=== PATIENT | male | born 1990 | race Caucasian/White ===

== ENCOUNTER 2019-09-18 20:09 | Inpatient (IN) | payer SELFPAY ==
[~2019-09-18] VITALS: Ht 175.3 cm; Wt 77.1 kg
[2019-09-18] MEDS ORDERED: KETOROLAC 30MG/ML VIAL IV STA (21:53)
[2019-09-18] MEDS ORDERED: SODIUM CHLORIDE 0.9% 1,000 ML IV ONE (21:53)
[2019-09-18 22:18] LABS: CHLORIDE 96 mEq/L (98-107); HEMATOCRIT. 42.7 % (42.0-52.0); HEMOGLOBIN. 14.6 g/dL (14.0-18.0); MEAN CORPUSCULAR HEMOGLOBIN 31.7 pg (28.0-32.0); MEAN CORPUSCULAR VOLUME 92.6 fL (80.0-94.0); MEAN PLATELET VOLUME 9.3 fl (7.4-10.4); PLATELET 408 x1000/uL (130-400); RED BLOOD CELL COUNT 4.61 mill/uL (4.7-6.1); RED CELL DISTRIBUTION WIDTH 12.9 % (11.6-14.6)
[2019-09-18 22:40] LABS: CLARITY URINE CLEAR (CLEAR); COLOR URINE DARK YELLOW (YELLOW); KETONES URINE TRACE (NEGATIVE); LEUKOCYTE ESTERASE URINE NEGATIVE (NEGATIVE); NITRITE URINE NEGATIVE (NEGATIVE); OCCULT BLOOD URINE NEGATIVE (NEGATIVE); PH URINE 5.5 (4.5-8.0); PROTEIN URINE 1+ (NEGATIVE); SPECIFIC GRAVITY URINE 1.032 (1.005-1.030)
[2019-09-18 22:41] LABS: PLATELET ESTIMATE INCREASED
[2019-09-18] MEDS ORDERED: IOHEXOL-300 100 ML BOTTLE ONE (23:33)
[2019-09-19] MEDS ORDERED: PIPERACILLIN/TAZ 3.375G PREMIX 50 ML IV ONE (00:15)
[2019-09-19] MEDS ORDERED: METRONIDAZOLE 500 MG PREMIX 100 ML IV ONE (00:15)
[2019-09-19] MEDS ORDERED: ONDANSETRON HCL 4MG/2ML INJ IV STA (00:33)
[2019-09-19] MEDS ORDERED: MORPHINE SULFATE 4 MG/ML CPJ (NOT FOR IM USE) IV STA (00:33)
[2019-09-19 00:59] LABS: INR 1.1; PARTIAL THROMBOPLASTIN TIME 32.7 sec (23.4-31.0)
[2019-09-19] MEDS ORDERED: FENTANYL CITRATE/PF 50MCG/ML 2ML VIAL ONE ×2 (05:36→06:23)
[2019-09-19] MEDS ORDERED: SUCCINYLCHOLINE CHLORIDE 200MG/10ML IV ONE (05:36)
[2019-09-19] MEDS ORDERED: GLYCOPYRROLATE 0.2 MG/ML 2ML VIAL ONE (05:36)
[2019-09-19] MEDS ORDERED: METOCLOPRAMIDE HCL 10MG/2ML VIAL ONE (05:36)
[2019-09-19] MEDS ORDERED: SODIUM CHLORIDE 0.9% 10ML VIAL ONE (05:36)
[2019-09-19] MEDS ORDERED: ONDANSETRON HCL 4MG/2ML INJ ONE (05:36)
[2019-09-19] MEDS ORDERED: PROPOFOL 200MG/20ML VIAL IV ONE (05:36)
[2019-09-19] MEDS ORDERED: MIDAZOLAM HCL 2 MG/2 ML VIAL ONE (05:36)
[2019-09-19] MEDS ORDERED: NEOSTIGMINE METHYLSULFATE 1MG/ML 10 ML VIAL ONE (05:36)
[2019-09-19] MEDS ORDERED: ROCURONIUM BROMIDE 10MG/ML VIAL 5ML IV ONE (05:36)
[2019-09-19] MEDS ORDERED: BUPIVACAINE HCL 0.5% (5MG/ML) 50ML ONE (06:25)
[2019-09-19] MEDS ORDERED: DEXT 5%/0.45% NACL KCL 20MEQ/L 1,000 ML IV SCH (07:08)
[2019-09-19] MEDS ORDERED: ONDANSETRON HCL 4MG/2ML INJ IV PRN ×2 (07:15→07:30)
[2019-09-19] MEDS ORDERED: HYDROMORPHONE HCL/PF 2MG/ML CPJ IV PRN (07:30)
[2019-09-19] MEDS ORDERED: MORPHINE SULFATE 2 MG/ML CPJ (NOT FOR IM USE) IV PRN (07:30)
[2019-09-19] MEDS ORDERED: MEPERIDINE HCL/PF 25MG/ML CPJ IV PRN ×2 (07:30)
[2019-09-19 08:00] VITALS: BP 130/66
[2019-09-19] MEDS ORDERED: SODIUM CHLORIDE 0.9% 1,000 ML IV ONE (08:00)
[2019-09-19 09:50] VITALS: BP 130/66
[2019-09-19] MEDS: FAMOTIDINE 20MG/2ML VIAL IV SCH ×2 (11:18→20:46)
[2019-09-19] MEDS: MORPHINE SULFATE 2 MG/ML CPJ (NOT FOR IM USE) IV PRN (11:19)
[2019-09-19 12:00] VITALS: BP 110/68
[2019-09-19] MEDS: PIPERACILLIN/TAZOBACTAM 3.375 G in DEXT 5% WATER 100 ML IV SCH ×2 (12:19→17:24)
[2019-09-19] MEDS: DEXT 5%/0.45% NACL KCL 20MEQ/L 1,000 ML IV SCH (12:19)
[2019-09-19] MEDS ORDERED: POTASSIUM CHLORIDE INJ 40 MEQ in DEXT 5% WATER 250 ML IV NR (12:30)
[2019-09-19] MEDS: MORPHINE SULFATE 4 MG/ML CPJ (NOT FOR IM USE) IV PRN ×2 (14:13→21:01)
[2019-09-19 16:00] VITALS: BP 94/50
[2019-09-19 20:00] VITALS: BP 111/50
[2019-09-20 00:05] VITALS: BP 101/47
[2019-09-20] MEDS: DEXT 5%/0.45% NACL KCL 20MEQ/L 1,000 ML IV SCH ×3 (00:48→17:14)
[2019-09-20] MEDS: PIPERACILLIN/TAZOBACTAM 3.375 G in DEXT 5% WATER 100 ML IV SCH ×4 (00:48→17:11)
[2019-09-20] MEDS: MORPHINE SULFATE 4 MG/ML CPJ (NOT FOR IM USE) IV PRN ×3 (03:42→21:27)
[2019-09-20 04:00] VITALS: BP 91/52
[2019-09-20 07:47] LABS: BASOPHILS % 0.2 % (0.0-2.0); EOSINOPHILS % 0.2 % (0.0-5.0); HEMATOCRIT. 37.3 % (42.0-52.0); HEMOGLOBIN. 12.5 g/dL (14.0-18.0); MEAN CORPUSCULAR HEMOGLOBIN 31.5 pg (28.0-32.0); MEAN CORPUSCULAR VOLUME 94.2 fL (80.0-94.0); MEAN PLATELET VOLUME 8.9 fl (7.4-10.4); MONOCYTES % 9.7 % (2.0-8.0); NEUTROPHILS % 81.9 % (40.0-76.0); PLATELET 367 x1000/uL (130-400); RED BLOOD CELL COUNT 3.95 mill/uL (4.7-6.1); RED CELL DISTRIBUTION WIDTH 13.3 % (11.6-14.6)
[2019-09-20 08:05] LABS: CHLORIDE 101 mEq/L (98-107)
[2019-09-20] MEDS: FAMOTIDINE 20MG/2ML VIAL IV SCH ×2 (08:48→21:26)
[2019-09-20 20:00] VITALS: BP 114/65
[2019-09-21] VITALS (7 sets, daily range): BP systolic 111–133; BP diastolic 66–87
[2019-09-21] MEDS: PIPERACILLIN/TAZOBACTAM 3.375 G in DEXT 5% WATER 100 ML IV SCH ×2 (00:04→05:37)
[2019-09-21] MEDS: DEXT 5%/0.45% NACL KCL 20MEQ/L 1,000 ML IV SCH ×3 (03:54→23:57)
[2019-09-21] MEDS: MORPHINE SULFATE 4 MG/ML CPJ (NOT FOR IM USE) IV PRN ×2 (04:02→20:17)
[2019-09-21] MEDS: FAMOTIDINE 20MG/2ML VIAL IV SCH ×2 (09:14→20:15)
[2019-09-21 11:11] LABS: HEMATOCRIT. 35.2 % (42.0-52.0); HEMOGLOBIN. 12.2 g/dL (14.0-18.0); MEAN CORPUSCULAR HEMOGLOBIN 32.3 pg (28.0-32.0); MEAN CORPUSCULAR VOLUME 93.1 fL (80.0-94.0); MEAN PLATELET VOLUME 8.1 fl (7.4-10.4); PLATELET 420 x1000/uL (130-400); RED BLOOD CELL COUNT 3.79 mill/uL (4.7-6.1); RED CELL DISTRIBUTION WIDTH 13.2 % (11.6-14.6)
[2019-09-21] MEDS: MORPHINE SULFATE 2 MG/ML CPJ (NOT FOR IM USE) IV PRN (12:31)
[2019-09-21 12:37] LABS: PLATELET ESTIMATE SLIGHTLY INCREASED
[2019-09-21] MEDS: CEFAZOLIN 1000MG PREMIX 50 ML IV SCH ×2 (13:59→22:31)
[2019-09-22] VITALS: BP 118/71
[2019-09-22 04:00] VITALS: BP 112/73
[2019-09-22] MEDS: MORPHINE SULFATE 4 MG/ML CPJ (NOT FOR IM USE) IV PRN (05:41)
[2019-09-22] MEDS: CEFAZOLIN 1000MG PREMIX 50 ML IV SCH ×3 (06:35→21:01)
[2019-09-22 07:03] LABS: HEMATOCRIT. 36.7 % (42.0-52.0); HEMOGLOBIN. 12.5 g/dL (14.0-18.0); MEAN CORPUSCULAR HEMOGLOBIN 31.7 pg (28.0-32.0); MEAN CORPUSCULAR VOLUME 93.3 fL (80.0-94.0); MEAN PLATELET VOLUME 8.2 fl (7.4-10.4); PLATELET 463 x1000/uL (130-400); RED BLOOD CELL COUNT 3.93 mill/uL (4.7-6.1); RED CELL DISTRIBUTION WIDTH 13.6 % (11.6-14.6)
[2019-09-22 07:17] LABS: CHLORIDE 100 mEq/L (98-107)
[2019-09-22 08:00] VITALS: BP 126/80
[2019-09-22] MEDS: FAMOTIDINE 20MG/2ML VIAL IV SCH ×2 (08:43→20:56)
[2019-09-22] MEDS: DEXT 5%/0.45% NACL KCL 20MEQ/L 1,000 ML IV SCH ×2 (10:10→20:56)
[2019-09-22 12:00] VITALS: BP 140/88
[2019-09-22] MEDS ORDERED: CEPH-569 MT (12:50)
[2019-09-22] MEDS ORDERED: HYDR-4001 MT (12:50)
[2019-09-22 15:06] LABS: PLATELET ESTIMATE INCREASED
[2019-09-22 15:49] VITALS: BP 135/87
[2019-09-22 20:00] VITALS: BP 133/84
[2019-09-22] MEDS: MORPHINE SULFATE 2 MG/ML CPJ (NOT FOR IM USE) IV PRN (20:57)
[2019-09-23] VITALS (8 sets, daily range): BP systolic 109–133; BP diastolic 76–81
[2019-09-23] MEDS: MORPHINE SULFATE 2 MG/ML CPJ (NOT FOR IM USE) IV PRN (04:50)
[2019-09-23] MEDS: CEFAZOLIN 1000MG PREMIX 50 ML IV SCH ×2 (05:16→13:37)
[2019-09-23] MEDS: DEXT 5%/0.45% NACL KCL 20MEQ/L 1,000 ML IV SCH ×2 (05:16→16:00)
[2019-09-23] MEDS: FAMOTIDINE 20MG/2ML VIAL IV SCH (08:22)
[2019-09-23 16:45] LABS: BASOPHILS % 0.2 % (0.0-2.0); EOSINOPHILS % 1.5 % (0.0-5.0); HEMATOCRIT. 39.1 % (42.0-52.0); HEMOGLOBIN. 13.5 g/dL (14.0-18.0); LYMPHOCYTES % 8.7 % (20.0-50.0); MEAN CORPUSCULAR HEMOGLOBIN 32.6 pg (28.0-32.0); MEAN CORPUSCULAR VOLUME 94.2 fL (80.0-94.0); MEAN PLATELET VOLUME 7.8 fl (7.4-10.4); MONOCYTES % 10.7 % (2.0-8.0); NEUTROPHILS % 78.9 % (40.0-76.0); PLATELET 535 x1000/uL (130-400); RED BLOOD CELL COUNT 4.15 mill/uL (4.7-6.1); RED CELL DISTRIBUTION WIDTH 13.8 % (11.6-14.6)
[2019-09-23 16:50] LABS: CHLORIDE 101 mEq/L (98-107)
[2019-09-23] MEDS ORDERED: HYDR-4001 MT (18:21)
[2019-09-23] MEDS ORDERED: CEPH-569 MT (18:21)
== END 2019-09-23 19:40 | disposition home or self-care (01) | DRG 710 ==
LOC: ER 20:09 → 6EST 09-19 00:35 → ENRESERV 09-19 05:15
PROVIDERS: ADMIT Internal Medicine Nephrology; ATTEND Internal Medicine Nephrology
PROC: 0DTJ0ZZ Resection of Appendix, Open Approach (ICD-10-PCS; principal; 2019-09-19)
PROC: 0W9F0ZZ Drainage of Abdominal Wall, Open Approach (ICD-10-PCS; 2019-09-19)
DX: A41.9 Sepsis, unspecified organism (principal); K35.33 Acute appendicitis with perforation, localized peritonitis, and gangrene, with abscess; E87.8 Other disorders of electrolyte and fluid balance, not elsewhere classified; E87.1 Hypo-osmolality and hyponatremia; E87.5 Hyperkalemia; N13.30 Unspecified hydronephrosis; K38.1 Appendicular concretions
CPT/HCPCS: 36415; 74177; 80048; 80053; 81003; 85025; 86850; 86900; 87070; 87075; 87077; 87186; 88304; 93005; 99285; J0330; J0690; J1885; J2175; J2250; J2270; J2405; J2543; J2704; J2710; J2765; J3010; J3480; J3490; J7030; J7060; Q9967

== ENCOUNTER 2019-09-30 06:42 | Emergency (ER) | payer SELFPAY ==
[~2019-09-30] VITALS: Ht 172.7 cm; Wt 75.1 kg
[~2019-09-30 06:42] MED LIST: CEPH-569 MT; HYDR-4001 MT
[2019-09-30] MEDS ORDERED: KETOROLAC 30MG/ML VIAL IV STA (08:18)
[2019-09-30 08:46] LABS: CLARITY URINE CLEAR (CLEAR); COLOR URINE YELLOW (YELLOW); KETONES URINE NEGATIVE (NEGATIVE); LEUKOCYTE ESTERASE URINE NEGATIVE (NEGATIVE); NITRITE URINE NEGATIVE (NEGATIVE); OCCULT BLOOD URINE NEGATIVE (NEGATIVE); PROTEIN URINE NEGATIVE (NEGATIVE); SPECIFIC GRAVITY URINE 1.019 (1.005-1.030)
[2019-09-30 08:51] LABS: BASOPHILS % 0.6 % (0.0-2.0); EOSINOPHILS % 1.4 % (0.0-5.0); HEMATOCRIT. 40.2 % (42.0-52.0); HEMOGLOBIN. 14.1 g/dL (14.0-18.0); LYMPHOCYTES % 12.1 % (20.0-50.0); MEAN CORPUSCULAR VOLUME 94.1 fL (80.0-94.0); MEAN PLATELET VOLUME 8.9 fl (7.4-10.4); MONOCYTES % 6.4 % (2.0-8.0); NEUTROPHILS % 79.5 % (40.0-76.0); PLATELET 696 x1000/uL (130-400); RED BLOOD CELL COUNT 4.27 mill/uL (4.7-6.1); RED CELL DISTRIBUTION WIDTH 13.8 % (11.6-14.6)
[2019-09-30 08:59] LABS: D-DIMER 7.4 mg/L FEU (<0.50); INR 1.1; PROTHROMBIN TIME 11.4 sec (9.6-11.0)
[2019-09-30 10:06] LABS: CHLORIDE 103 mEq/L (98-107)
[2019-09-30 10:48] VITALS: BP 115/64
[2019-09-30] MEDS ORDERED: IOHEXOL-350 100 ML BOTTLE ONE (14:33)
== END 2019-09-30 12:22 | disposition home or self-care (01) ==
LOC: ER 07:06
DX: M54.5 Low back pain (principal); Z90.49 Acquired absence of other specified parts of digestive tract; Z79.899 Other long term (current) drug therapy
CPT/HCPCS: 36415; 71045; 71275; 80053; 81003; 85025; 85379; 85610; 96374; 99285; J1885; Q9967